=== PATIENT | male | born 1995 ===

== ENCOUNTER 2017-06-01 14:54 | Emergency (ER) | payer SELFPAY ==
[~2017-06-01] VITALS: Ht 170.2 cm; Wt 77.1 kg
[2017-06-01 16:10] VITALS: BP 152/74
[2017-06-01] MEDS ORDERED: KETOROLAC TROMETH 60MG/2ML VIAL IM ONE (16:45)
== END 2017-06-01 17:09 | disposition home or self-care (01) ==
LOC: EDBD 14:54 → ER 15:00
DX: S16.1XXA Strain of muscle, fascia and tendon at neck level, initial encounter (principal); S40.011A Contusion of right shoulder, initial encounter; V49.49XA Driver injured in collision with other motor vehicles in traffic accident, initial encounter; Y93.89 Activity, other specified; Y99.8 Other external cause status; Y92.410 Unspecified street and highway as the place of occurrence of the external cause
CPT/HCPCS: 72040; 96372; 99284; J1885